=== PATIENT | female | born 1995 ===

== ENCOUNTER 2017-03-04 16:43 | Emergency (ER) | payer MEDICAID ==
[2017-03-04 16:52] VITALS: RESP 20; TEMP 98.5; O2SAT 98
[2017-03-04 18:29] LABS: RBC URINE < 1 /hpf (0-3); URINE BILIRUBIN NEGATIVE (NEGATIVE); URINE BLOOD NEGATIVE (NEGATIVE); URINE COLOR Straw (YELLOW); URINE GLUCOSE (UA) NORMAL (Normal); URINE KETONE NEGATIVE (NEGATIVE); URINE PROTEIN NEGATIVE (NEGATIVE); URINE UROBILINOGEN NORMAL mg/dL (0.2-1.0); WBC URINE 2 /hpf (0-5)
--- NOTE | 2017-03-04 18:31 | C.PDOC ---
History Of Present Illness 21 y/o female presents to ED for evaluation of pelvic pain and vaginal spotting. Pt is concerned for possible . Notes that home test was negative. (+)urinary frequency. Denies history of prior . Otherwise, denies any dysuria, hematuria, n/v/d, back pain, fever, or chills. Time Seen by Provider: 03/04/17 17:11 Chief Complaint (Nursing): Abdominal Pain History Per: Patient History/Exam Limitations: no limitations Onset/Duration Of Symptoms: Days Current Symptoms Are (Timing): Still Present Location Of Pain/Discomfort: Suprapubic Radiation Of Pain To:: None Quality Of Discomfort: "Pain" Associated Symptoms: Urinary Symptoms. denies: Nausea, Vomiting, Diarrhea, Loss Of Appetite, Back Pain, Chest Pain, Constipation Exacerbating Factors: None Alleviating Factors: None Recent travel outside of the [place]: No Additional History Per: Patient Abnormal Vaginal Bleeding: Yes Past Medical History Reviewed: Historical Data, Nursing Documentation, Vital Signs Vital Signs: Last Vital Signs Temp 98.5 F 03/04/17 18:59 Pulse 71 03/04/17 18:59 Resp 20 03/04/17 18:59 BP 128/74 03/04/17 18:59 Pulse Ox 98 03/04/17 18:59 Family History: States: Unknown Family Hx - Social History Hx Alcohol Use: No Hx Substance Use: No - Immunization History Hx Tetanus Toxoid Vaccination: No Hx Influenza Vaccination: Yes (12/2016) Hx Pneumococcal Vaccination: No Review Of Systems Except As Marked, All Systems Reviewed And Found Negative. Constitutional: Negative for: Fever, Chills Gastrointestinal: Negative for: Nausea, Vomiting, Diarrhea, Constipation Genitourinary: Positive for: Frequency, Vaginal Bleeding (spotting), Pelvic Pain. Negative for: Dysuria, Incontinence, Hematuria, Vaginal Discharge Musculoskeletal: Negative for: Back Pain Physical Exam - Physical Exam Appears: Non-toxic, No Acute Distress Skin: Normal Color, Warm, Dry Head: Atraumatic, Normacephalic Eye(s): bilateral: Normal Inspection, EOMI Nose: Normal Oral Mucosa: Moist Neck: Normal ROM, Supple Chest: Symmetrical Cardiovascular: Rhythm Regular, No Murmur Respiratory: Normal Breath Sounds, No Rales, No Rhonchi, No Wheezing Gastrointestinal/Abdominal: Soft, No Tenderness, No Guarding, No Rebound Back: No CVA Tenderness Extremity: Normal ROM, No Pedal Edema Neurological/Psych: Oriented x3, Normal Speech ED Course And Treatment O2 Sat by Pulse Oximetry: 98 (on RA) Pulse Ox Interpretation: Normal Progress Note: UA ordered and reviewed. On re-eval, patient is resting comfortably, abdomen remains soft, non-tender. Patient feels comfortable going home. Patient will be discharged home with instructions to f/u with OBGYN in 1- 2 days for further evaluation. Case discussed with Dr Jordan, agreed upon plan and treatment. Disposition - Disposition Disposition: HOME/ ROUTINE Disposition Time: 18:31 Condition: STABLE Additional Instructions: Follow up with your primary medical doctor or clinic in 2-5 days for further evaluation. Return to the emergency department at any time if symptoms persist or worsen. Instructions: Menstruation (ED) Forms: [employer] (Cape Verdean) - Clinical Impression Clinical Impression: Dysmenorrhea - PA / GROUP WORK PROGRAM DIRECTOR / Resident Statement MD/DO has reviewed & agrees with the documentation as recorded. - Scribe Statement The provider has reviewed the documentation as recorded by the Scribcata Lyon All medical record entries made by the Keyon were at my direction and personally dictated by me. I have reviewed the chart and agree that the record accurately reflects my personal performance of the history, physical exam, medical decision making, and the department course for this patient. I have also personally directed, reviewed, and agree with the discharge instructions and disposition.
[2017-03-04 18:35] LABS: URINE BACTERIA RARE (<OCC); URINE LEUKOCYTE ESTERASE NEGATIVE Leu/uL (Negative)
[2017-03-04 19:00] VITALS: BP 128/74; PULSE 71
== END 2017-03-04 18:30 | disposition home or self-care (01) ==
LOC: C.ER 16:43
DX: N94.6 Dysmenorrhea, unspecified (principal)

== ENCOUNTER 2017-07-19 17:20 | Emergency (ER) | payer SELFPAY ==
[2017-07-19 17:33] VITALS: RESP 16; TEMP 97.3
[2017-07-19] MEDS ORDERED: Lidocaine 2% Inj (20ml) INFIL ONE (17:40)
--- NOTE | 2017-07-19 17:47 | C.PDOC ---
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 Patient states a display bike fell onto her face. Denies LOC, syncope, severe headache, vision changes, nausea, vomiting, nose bleeding, neck pain or any other active complaints. Ambulate to Ed for evaluation, not in any apparent distress. 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 Eyes: Negative for: Vision Change ENT: Negative for: Nose Discharge Gastrointestinal: Negative for: Nausea, Vomiting Musculoskeletal: Negative for: Neck Pain Skin: Positive for: Other (laceration to the nose) Neurological: Negative for: Headache Physical Exam - Physical Exam Appears: Non-toxic, No Acute Distress Skin: Warm, Dry Head: Normacephalic Eye(s): bilateral: PERRL, EOMI Nose: No Flaring, Epistaxis (scattered bloody scabs B/L nastrils), No Septal Hematoma, Other ((+) 2cm L shaped cutaneous lacertaion to the base of nose, mild bloody oozing noted. No obvious nasal deformity noted.) Oral Mucosa: Moist, No Drooling Tongue: Normal Appearing Lips: Normal Appearing Throat: No Erythema, No Drooling Neck: Trachea Midline, No Midline Cervical Tenderness, No Paracervical Tenderness, No Step Off Deformity, Supple Chest: Symmetrical Respiratory: No Rales, No Rhonchi Extremity: Normal ROM, No Deformity, No Swelling Neurological/Psych: Oriented x3, Normal Speech, Normal Motor, Normal Sensation, Normal Reflexes ED Course And Treatment O2 Sat by Pulse Oximetry: 99 (RA) Pulse Ox Interpretation: Normal Progress Note: On re-eval, pt is awake, alert, not in any apparent distress. Non -toxic. . PulseOx 99% RA. ENT: exam c/w laceration to nasal bridge, preiared w/ sutures. Mild edema, no obvious deformity, no septal hematoma. neck: Supple, ( -) midline tenderness. Neuorlogicaly intact. Imaging offered to pt, refused at present time. Pt advised OBS 48 hrs for any sign of hea dinjury, advised on wound care. ref. to F/u with PMD, ENT in 2-3 days for re-eval. return if any new changes. Laceration - Laceration Repair Nose Wound Length (In cm): 2 Description Of Wound: Irregular (L-shape) Wound Cleansed With: Betadine, Sterile Saline Anesthesia: Lidocaine 2% Wound Examination: Irrigated With Saline, No FB With Wound Exploration Wound Closure: Suture (#6) Suture Technique And Material Used: Interrupted, Nylon (5-0) Disposition Counseled Patient/Family Regarding: Diagnosis, Need For Followup, Rx Given - Disposition Referrals: [facility] [Outside] Dylon Ivy MD [Staff Provider] - Disposition: HOME/ ROUTINE Disposition Time: 18:06 Condition: STABLE Additional Instructions: CLEAN WOUND WITH PEROXIDE, APPLY ANTIBIOTIC CREAM TOPICALY KEEP WOUND DRY, AVOID WATER EXPOSURE SUTURE REMOVAL IN 5 DAYS RETURN TO ED AT ANY TIME IF ANY SEVERE HEADACHE, LETHARGY, NASAL BLEEDING, VOMITING OR ANY SIGN OF WOUND INFECTION FOLLOW UP WITH ENT IN 3-4 DAYS FOR RE-EVALUATION. Prescriptions: Bacitracin OINT 1 applic TP BID #1 tube Instructions: Laceration (ED) Forms: [employer] (Maltese) - Clinical Impression Clinical Impression: Laceration of nose, Head injury - PA / OYSTER HARVESTER / Resident Statement MD/DO has reviewed & agrees with the documentation as recorded. - Scribe Statement The provider has reviewed the documentation as recorded by the Scribe Myla Raymundo All medical record entries made by the Scribe were at my direction and personally dictated by me. I have reviewed the chart and agree that the record accurately reflects my personal performance of the history, physical exam, medical decision making, and the department course for this patient. I have also personally directed, reviewed, and agree with the discharge instructions and disposition.
[2017-07-19] MEDS ORDERED: Lidocaine 2% Inj (20ml) ONE (17:53)
[2017-07-19 18:41] VITALS: BP 126/78; PULSE 78; O2SAT 98
== END 2017-07-19 18:39 | disposition home or self-care (01) ==
LOC: C.ER 17:20
DX: S01.21XA Laceration without foreign body of nose, initial encounter (principal); W22.8XXA Striking against or struck by other objects, initial encounter; Y92.89 Other specified places as the place of occurrence of the external cause